=== PATIENT | female | born 1970 | race Caucasian/White ===

== ENCOUNTER 2020-06-07 06:24 | Observation (INO) ==
--- NOTE | 2020-06-07 06:45 | ERNOTE ---
<Erik Knox - Last Filed: 06/07/20 07:24> Medical Problem HPI - General Time Seen by Provider: 06/07/20 06:37 Source: patient Exam Limitations: no limitations - Immun/Allergies/Home Medications Immunizations: IMMUNIZATION HX Immunizations Up to Date Yes History of Influenza Vaccine Yes Hx Pneumococcal Vaccination No Allergies/Adverse Reactions: Allergies [facility] Allergy (Unknown, Verified 06/07/20 06:30) Cognitive changes Home Medications: HOME MEDICATIONS Atorvastatin Calcium 40 mg PO DAILY 06/10/19 [Last Taken Unknown] valACYclovir HCL [Valacyclovir] 500 mg PO DAILY 07/12/19 [Last Taken Unknown] diclofenac sodium 1 % topical gel 4 g TP QID PRN #100 g 07/17/19 [Last Taken Unknown] rivaroxaban 20 mg tablet 20 mg PO QPM 07/17/19 [Last Taken Unknown] pediatric multivitamin no.76 1 tab PO DAILY 01/19/20 [Last Taken Unknown] levothyroxine 25 mcg tablet 25 mcg PO DAILY #90 tab 01/26/20 [Last Taken Unknown] colestipol 1 gram tablet 1 g PO BID 03/29/20 [Last Taken Unknown] fidaxomicin 200 mg tablet 200 mg PO BID tab 03/29/20 [Last Taken Unknown] promethazine 25 mg tablet 25 mg PO TID 03/29/20 [Last Taken Unknown] ondansetron 4 mg disintegrating tablet 4 mg PO Q6H PRN 04/08/20 [Last Taken Unknown] desvenlafaxine succinate 100 mg tablet,extended release 24 hr 100 mg PO DAILY #90 tab 04/23/20 [Last Taken Unknown] desvenlafaxine succinate 50 mg tablet,extended release 24 hr 50 mg PO DAILY #90 tab 04/23/20 [Last Taken Unknown] lactase 3,000 unit tablet 9,000 unit PO AC PRN tab 04/24/20 [Last Taken Unknown] loperamide 2 mg capsule 4 mg PO Q6H PRN cap 04/24/20 [Last Taken Unknown] ropinirole 0.5 mg tablet 0.5 mg PO TID #270 tab 04/24/20 [Last Taken Unknown] sucralfate 1 gram tablet 1 g PO BID #60 tab 04/26/20 [Last Taken Unknown] pregabalin 100 mg capsule 100 mg PO BID #180 cap 05/06/20 [Last Taken Unknown] dicyclomine 10 mg capsule 20 mg PO QID #1 cap 05/10/20 [Last Taken Unknown] tizanidine 2 mg tablet See Rx Instructions PO .COMPLEX #120 tab 06/04/20 [Last Taken Unknown] clonazepam 1 mg tablet 1 mg PO TID PRN #90 tab 06/05/20 [Last Taken Unknown] lamotrigine 150 mg tablet 150 mg PO HS #15 tab 06/05/20 [Last Taken Unknown] lamotrigine 150 mg tablet 150 mg PO HS #90 tab 06/05/20 [Last Taken Unknown] trazodone 100 mg tablet 100 mg PO HS PRN #180 tab 06/05/20 [Last Taken Unknown] trazodone 100 mg tablet 200 mg PO HS #30 tab 06/05/20 [Last Taken Unknown] Potassium Chloride [K-Dur] 20 meq PO DAILY #4 tab 06/07/20 [Last Taken Unknown] - History of Present History Narrative: Patient states she normally does not feel well due to many comorbidities. She states that she did a lot of activity yesterday throughout the night she had crampy muscles diarrhea and could not sleep. Timing: getting worse Severity: mild, moderate Review of Systems - Review of Systems Constitutional: Present: See HPI, fatigue, malaise. Absent: recent illness EYE: Absent: vision changes ENT: Absent: nose congestion Respiratory: Absent: shortness of breath Cardiology: Absent: chest pain Gastrointestinal/Abdominal: Present: See HPI, nausea, diarrhea Genitourinary: Absent: dysuria Musculoskeletal: Present: back pain, muscle pain Skin: Absent: rash Neurological: Present: dizziness/light-headedness - off balance Endocrine: Absent: excessive sweating Medical History (Last Reviewed 06/07/20 @ 06:44 by Erik Knox DO) Insomnia due to mental disorder (Chronic) Bipolar affective disorder, current episode depressed (Chronic) Major depression (Chronic) Borderline personality disorder (Chronic) [place] disease C. difficile diarrhea Onset Date: 01/2020 Influenza vaccine not given Onset Date: ~12/29/19 Patient has already received for the season. JANELLE Reddy Migraine Pacemaker Onset Date: ~2014 TIA (transient ischemic attack) Allergic rhinitis Anxiety Arrhythmia Borderline personality disorder Cardiomyopathy Depression Fibromyalgia Hypertension Hypothyroidism Insomnia Leg pain Major depression Mixed hyperlipidemia Seasonal allergies Bipolar affective disorder, current episode depressed (Resolved) CVA (cerebral vascular accident) Cerebral artery occlusion Intestinal anastomotic leak Surgical History: Surgical History (Last Reviewed 06/07/20 @ 06:44 by Erik Knox DO) delivery delivered History of cholecystectomy History of colonoscopy Onset Date: 04/11/20 [facility] History of endoscopy Onset Date: 03/22/20 History of gastric bypass History of hysterectomy History of tonsillectomy Hx of tubal ligation Family History: Family History (Last Reviewed 06/07/20 @ 06:44 by Erik Knox DO) Sister Diabetes Social History: (Last Reviewed 06/07/20 @ 06:44 by Erik Knox DO) Social History: adopted: No foster care: No prison: No Marital status: number of children: 2 current occupational status: unemployed Highest level of school completed/degree received: Bachelor's degree Service: No Tobacco: Smoking Status: Never smoker Alcohol: alcohol intake: former Substance Use: substance use type: does not use Dietary Habits: caffeine: Yes Physical Exam - Physical Exam General Appearance: Present: wd/wn, alert, mild distress Head Exam: Present: normal inspection, no evidence of injury Neck: Present: normal inspection, nontender Respiratory: Present: no respiratory distress, normal breath sounds, lungs clear Cardiovascular/Chest: Present: regular rate, rhythm, no murmur Gastrointestinal/Abdominal: Present: normal bowel sounds, tenderness - upper abdomen Back Exam: Present: normal inspection, normal range of motion Extremity Exam: Present: normal inspection, normal range of motion, no edema Neurological Exam: Present: alert, oriented, no motor/sensory deficits Skin Exam: Present: normal color, warm/dry Lymphatic Exam: Present: no adenopathy Progress - Results and Orders Patient's Lab Results:: I have reviewed the patient's lab results. - Vital Signs Patient's Vital Signs:: I have reviewed the patient's vital signs. - Transfer of Care Physician Sign Out: Erik Knox Receiving Physician: Luis Angel Price Pending Results: Labs Expected Disposition: Discharge Departure Clinical Impression: Dehydration, Cramps, muscle, general, Hypokalemia - Departure Disposition: Home self-care Condition: Stable Instructions: Hypokalemia Additional Instructions: Rest. Fluids. Follow-up Wednesday at 10:[address] Sawant in the office. Oral potassium as directed. Return here for fever, vomiting, increased pain or if your condition worsens or changes in any way. Referrals: Mago Sawant MD [Primary Care Provider] - Prescriptions: Potassium Chloride [K-Dur] 20 meq PO DAILY #4 tab Transmission Status: Pending to [id number] <Luis Angel Price - Last Filed: 06/07/20 08:42> Medical Problem HPI - Immun/Allergies/Home Medications Immunizations: IMMUNIZATION HX Immunizations Up to Date Yes History of Influenza Vaccine Yes Hx Pneumococcal Vaccination No Medical History (Last Reviewed 06/07/20 @ 06:44 by Erik Knox DO) Insomnia due to mental disorder (Chronic) Bipolar affective disorder, current episode depressed (Chronic) Major depression (Chronic) Borderline personality disorder (Chronic) [place] disease C. difficile diarrhea Onset Date: 01/2020 Influenza vaccine not given Onset Date: ~12/29/19 Patient has already received for the season. JANELLE Reddy Migraine Pacemaker Onset Date: ~2014 TIA (transient ischemic attack) Allergic rhinitis Anxiety Arrhythmia Borderline personality disorder Cardiomyopathy Depression Fibromyalgia Hypertension Hypothyroidism Insomnia Leg pain Major depression Mixed hyperlipidemia Seasonal allergies Bipolar affective disorder, current episode depressed (Resolved) CVA (cerebral vascular accident) Cerebral artery occlusion Intestinal anastomotic leak Surgical History: Surgical History (Last Reviewed 06/07/20 @ 06:44 by Erik Knox DO) delivery delivered History of cholecystectomy History of colonoscopy Onset Date: 04/11/20 [facility] History of endoscopy Onset Date: 03/22/20 History of gastric bypass History of hysterectomy History of tonsillectomy Hx of tubal ligation Family History: Family History (Last Reviewed 06/07/20 @ 06:44 by Erik Knox DO) Sister Diabetes Social History: (Last Reviewed 06/07/20 @ 06:44 by Erik Knox DO) Social History: adopted: No foster care: No prison: No Marital status: number of children: 2 current occupational status: unemployed Highest level of school completed/degree received: Bachelor's degree Service: No Tobacco: Smoking Status: Never smoker Alcohol: alcohol intake: former Substance Use: substance use type: does not use Dietary Habits: caffeine: Yes Progress - Results and Orders Patient's Lab Results:: I have reviewed the patient's lab results. - Vital Signs Patient's Vital Signs:: I have reviewed the patient's vital signs. Vital Signs: Vital Signs 06/07/20 06:25 06/07/20 07:09 06/07/20 07:44 Temperature 36.6 C Pulse Rate 110 H 78 92 Respiratory Rate 16 14 16 Blood Pressure 130/81 117/75 116/92 H O2 Sat by Pulse Oximetry 99 98 98 - X-Ray X-Ray #1 X-Ray: abdomen Interpretation: Interp. by me X-ray Comments: I personally reviewed x-ray images as well as official radiology report. - Progress/Reassessment Progress Note-Subjective: 06/07/20 08:35 Patient checked out to me at am shift change. Labs reviewed. I gave PO and IV potassium and IV Solu-cortef. I spoke with the patient. I called Dr Sawant about admitting the patient observation but Dr Sawant knows her well and would like outpatient management with oral potassium and she will see her Wednesday in the office. I related this to the patient and she is agreeable. Please see Dr Knox's note for full H&P. Vitals stable.
[2020-06-07] MEDS ORDERED: ONDANSETRON HCL/PF 2 MG/ML VIAL IV ONE (07:10)
[2020-06-07 07:22] LABS: Hematocrit 42.9 % (37.0-47.0); Hemoglobin 13.3 gm/dL (12.5-16.0); Mean Cell Volume 91.3 fl (78-100); Mean Corpuscular Hemoglobin 28.3 pg (27-31); Neutrophil # 7.3 K/mm3 (1.3-6.0); Neutrophil % 77.7 % (42-75.0); Platelet Count 194 K/mm3 (150-450); Red Cell Distribution Width 13.9 % (11.5-14.0); White Blood Count 9.4 K/mm3 (4.0-10.5)
[2020-06-07 07:26] LABS: Urine Bilirubin Negative (NEGATIVE); Urine Blood Negative /ul (NEGATIVE); Urine Ketone Negative (NEGATIVE); Urine Nitrite Negative (NEGATIVE); Urine Protein Negative (NEGATIVE); Urine Urobilinogen Normal (NORMAL)
[2020-06-07] MEDS ORDERED: NORMAL SALINE 1,000 ML IV ONE (07:26)
[2020-06-07 07:36] LABS: Anion Gap 15.8 mmol/L (6.8-13.8); BUN/Creatinine Ratio 8.8 (9.0-21.6); Bilirubin, Total 0.2 mg/dL (0.0-1.1); Ca. Corrected For Albumin 8.4 mg/dL (8.4-10.2); Calcium * 8.7 mg/dL (7.9-10.9); Carbon Dioxide 24.8 mmol/L (24-32.6); Potassium 2.6 mmol/L (3.4-4.6); Total Protein 6.9 gm/dL (6.2-8.2)
[2020-06-07] MEDS ORDERED: HYDROCORTISONE SOD SUCCINATE 50 MG/ML VIAL IV ONE (07:38)
[2020-06-07 07:43] LABS: Urine Appearance Clear (CLEAR); Urine Bacteria None Seen; Urine Color Yellow; Urine RBC None Seen /hpf (0-5); Urine WBC None Seen /hpf (0-5)
[2020-06-07] MEDS ORDERED: POTASSIUM CHLORIDE 20 MEQ TABLET.SA PO ONE (07:54)
[2020-06-07] MEDS: POTASSIUM CHLORIDE IN WATER 100 ML IV SCH ×4 (08:35→13:31)
--- NOTE | 2020-06-07 10:31 | HP ---
Chief Complaint - Chief Complaint Date of Service: 06/07/20 Time of Service: 09:28 Chief Complaint: Muscle pain and diarrhea History of Present Illness: 49-year-old female with a past medical history of cardiomyopathy status post pacemaker, seizure, CVA, depression, fibromyalgia, hypertension, hypothyroidism, insomnia, major depression, hyperlipidemia, anxiety, bipolar affective disorder, borderline personality disorder presents from home with complaints of diarrhea and muscle pain. She has been having chronic diarrhea for months and has been following with gastroenterology at the [facility]. She was recently treated for recurrent C. difficile. She states the diarrhea has now completely resolved. She is able to eat now but has diarrhea after meals up to 3 episodes each time. She is tolerating oral hydration. In the ER she was found to have potassium of 2.6, sodium of 143. Abdominal x-ray showed mild nonspecific, nonobstructive ileus. She received IV fluids and potassium chloride 40 mEq orally and 10 mEq IV. ER physician wanted to send her home and have her follow- up with me in the office next week with repeat BMP. However, she declined to be sent home today and would like to remain for observation. She is being admitted for diarrhea with hypokalemia. Medical History (Last Reviewed 06/07/20 @ 06:44 by Erik Knox DO) Insomnia due to mental disorder (Chronic) Bipolar affective disorder, current episode depressed (Chronic) Major depression (Chronic) Borderline personality disorder (Chronic) [place] disease C. difficile diarrhea Onset Date: 01/2020 Influenza vaccine not given Onset Date: ~12/29/19 Patient has already received for the season. JANELLE Reddy Migraine Pacemaker Onset Date: ~2014 TIA (transient ischemic attack) Allergic rhinitis Anxiety Arrhythmia Borderline personality disorder Cardiomyopathy Depression Fibromyalgia Hypertension Hypothyroidism Insomnia Leg pain Major depression Mixed hyperlipidemia Seasonal allergies Bipolar affective disorder, current episode depressed (Resolved) CVA (cerebral vascular accident) Cerebral artery occlusion Intestinal anastomotic leak Surgical History: Surgical History (Last Reviewed 06/07/20 @ 06:44 by Erik Knox DO) delivery delivered History of cholecystectomy History of colonoscopy Onset Date: 04/11/20 [facility] History of endoscopy Onset Date: 03/22/20 History of gastric bypass History of hysterectomy History of tonsillectomy Hx of tubal ligation Family History: Family History (Last Reviewed 06/07/20 @ 06:44 by Erik Knox DO) Sister Diabetes Social History: (Last Reviewed 06/07/20 @ 06:44 by Erik Knox DO) Social History: adopted: No foster care: No jail: No Marital status: number of children: 2 current occupational status: unemployed Highest level of school completed/degree received: Bachelor's degree Service: No Tobacco: Smoking Status: Never smoker Alcohol: alcohol intake: former Substance Use: substance use type: does not use Dietary Habits: caffeine: Yes Review Of Systems (GEN) - Review of Systems Generalized/Overall Review: Absent: Chills, Fever Respiratory: Absent: Shortness of Breath Cardiac: Absent: Chest Pain Abdominal: Present: Nausea, Vomiting, Diarrhea. Absent: Abdominal Pain Musculoskeletal: Present: Muscle Pain Misc: All systems neg except as marked Immunizations: IMMUNIZATION HX Immunizations Up to Date Yes History of Influenza Vaccine Yes Hx Pneumococcal Vaccination No Allergies/Adverse Reactions: Allergies Allergy/AdvReac Type Severity Reaction Status Date / Time aripiprazole [From [facility]] Allergy Unknown Cognitive Verified 06/07/20 06:30 changes Home Medications: HOME MEDICATIONS Atorvastatin Calcium 40 mg PO DAILY 06/10/19 [Last Taken Unknown] valACYclovir HCL [Valacyclovir] 500 mg PO DAILY 07/12/19 [Last Taken Unknown] diclofenac sodium 1 % topical gel 4 g TP QID PRN #100 g 07/17/19 [Last Taken Unknown] rivaroxaban 20 mg tablet 20 mg PO QPM 07/17/19 [Last Taken Unknown] pediatric multivitamin no.76 1 tab PO DAILY 01/19/20 [Last Taken Unknown] levothyroxine 25 mcg tablet 25 mcg PO DAILY #90 tab 01/26/20 [Last Taken Unknown] colestipol 1 gram tablet 1 g PO BID 03/29/20 [Last Taken Unknown] fidaxomicin 200 mg tablet 200 mg PO BID tab 03/29/20 [Last Taken Unknown] promethazine 25 mg tablet 25 mg PO TID 03/29/20 [Last Taken Unknown] ondansetron 4 mg disintegrating tablet 4 mg PO Q6H PRN 04/08/20 [Last Taken Unknown] desvenlafaxine succinate 100 mg tablet,extended release 24 hr 100 mg PO DAILY #90 tab 04/23/20 [Last Taken Unknown] desvenlafaxine succinate 50 mg tablet,extended release 24 hr 50 mg PO DAILY #90 tab 04/23/20 [Last Taken Unknown] lactase 3,000 unit tablet 9,000 unit PO AC PRN tab 04/24/20 [Last Taken Unknown] loperamide 2 mg capsule 4 mg PO Q6H PRN cap 04/24/20 [Last Taken Unknown] ropinirole 0.5 mg tablet 0.5 mg PO TID #270 tab 04/24/20 [Last Taken Unknown] sucralfate 1 gram tablet 1 g PO BID #60 tab 04/26/20 [Last Taken Unknown] pregabalin 100 mg capsule 100 mg PO BID #180 cap 05/06/20 [Last Taken Unknown] dicyclomine 10 mg capsule 20 mg PO QID #1 cap 05/10/20 [Last Taken Unknown] tizanidine 2 mg tablet See Rx Instructions PO .COMPLEX #120 tab 06/04/20 [Last Taken Unknown] clonazepam 1 mg tablet 1 mg PO TID PRN #90 tab 06/05/20 [Last Taken Unknown] lamotrigine 150 mg tablet 150 mg PO HS #15 tab 06/05/20 [Last Taken Unknown] lamotrigine 150 mg tablet 150 mg PO HS #90 tab 06/05/20 [Last Taken Unknown] trazodone 100 mg tablet 100 mg PO HS PRN #180 tab 06/05/20 [Last Taken Unknown] trazodone 100 mg tablet 200 mg PO HS #30 tab 06/05/20 [Last Taken Unknown] Potassium Chloride [K-Dur] 20 meq PO DAILY #4 tab 06/07/20 [Last Taken Unknown] Exam - Exam Vital Signs: Vital Signs - Last Taken Temp 36.6 C 06/07/20 06:25 Pulse 93 06/07/20 09:55 Resp 16 06/07/20 09:55 BP 133/85 06/07/20 09:55 Pulse Ox 95 06/07/20 09:55 Constitutional: Present: Alert, Cooperative, Well developed, Well nourished, No distress, Middle aged Eye Exam: bilateral eye: normal inspection, EOMI Neck: Present: non-tender, supple. Absent: lymphadenopathy (R), lymphadenopathy (L) Back Exam: Present: normal inspection, no CVA tenderness, no vertebral tenderness Respiratory: Present: lungs clear, no respiratory distress, no accessory muscle use, No wheezing. Absent: crackles, rhonchi Cardiovascular/Chest: Present: normal peripheral pulses, regular rate, rhythm, no edema, no murmur Peripheral Pulses: dorsalis-pedis (R): 2+, dorsalis-pedis (L): 2+ Abdomen: Present: Normal bowel sounds, soft, nontender Extremity: Present: no pedal edema Skin Exam: Present: normal color, warm/dry Neurologic: Present: alert, normal mood/affect Appearance: Present: appropriate appearance, appropriate insight Eye contact: Present: cooperative, good eye contact Thoughts: Present: normal thought pattern, normal mood /affect Diagnostic Studies: Abnormal Lab Results 06/07/20 06/07/20 Range/Units 07:11 07:11 MCHC 31.0 L (32-36) g/dl Neutrophils % 77.7 H (42-75.0) % Lymphocytes % 13.5 L (20-51) % Neutrophils # 7.3 H (1.3-6.0) K/mm3 Lymphocytes # 1.26 L (1.5-3.5) k/mm3 Sodium 143 H (132-142) mmol/L Plasma Sodium 143 H (130-142) mmol/L Potassium 2.6 L (3.4-4.6) mmol/L Anion Gap 15.8 H (6.8-13.8) mmol/L Est GFR (Non-Af Amer) 48 L (60-130) mL/min BUN/Creatinine Ratio 8.8 L (9.0-21.6) Laboratory Results WBC 9.4 K/mm3 (4.0-10.5) 06/07/20 07:11 RBC 4.70 M/mm3 (4.2-5.4) 06/07/20 07:11 Hgb 13.3 gm/dL (12.5-16.0) 06/07/20 07:11 Hct 42.9 % (37.0-47.0) 06/07/20 07:11 MCV 91.3 fl (78-100) 06/07/20 07:11 MCH 28.3 pg (27-31) 06/07/20 07:11 MCHC 31.0 g/dl (32-36) L 06/07/20 07:11 RDW 13.9 % (11.5-14.0) 06/07/20 07:11 Plt Count 194 K/mm3 (150-450) 06/07/20 07:11 MPV 11.0 fl (8-12.5) 06/07/20 07:11 Immature Gran % (Auto) 0.30 % (0.001-0.429) 06/07/20 07:11 Immature Gran # (Auto) 0.03 K/mm3 (0.000-0.0310) 06/07/20 07:11 Neutrophils % 77.7 % (42-75.0) H 06/07/20 07:11 Lymphocytes % 13.5 % (20-51) L 06/07/20 07:11 Monocytes % 6.9 % (0.0-9) 06/07/20 07:11 Eosinophils % 1.1 % (0.0-3.0) 06/07/20 07:11 Basophils % 0.5 % (0.0-1.0) 06/07/20 07:11 Nucleated RBC % 0.0 k/mm3 (0-1) 06/07/20 07:11 Neutrophils # 7.3 K/mm3 (1.3-6.0) H 06/07/20 07:11 Lymphocytes # 1.26 k/mm3 (1.5-3.5) L 06/07/20 07:11 Monocytes # 0.7 k/mm3 (0.0-1.0) 06/07/20 07:11 Eosinophils # 0.1 k/mm3 (0.0-0.7) 06/07/20 07:11 Absolute Basophils 0.1 k/mm3 (0.0-0.1) 06/07/20 07:11 Sodium 143 mmol/L (132-142) H 06/07/20 07:11 Plasma Sodium 143 mmol/L (130-142) H 06/07/20 07:11 Potassium 2.6 mmol/L (3.4-4.6) L 06/07/20 07:11 Chloride 105 mmol/L (97-106) 06/07/20 07:11 Carbon Dioxide 24.8 mmol/L (24-32.6) 06/07/20 07:11 Anion Gap 15.8 mmol/L (6.8-13.8) H 06/07/20 07:11 BUN 11 mg/dL (3-23) 06/07/20 07:11 Creatinine 1.25 mg/dL (0.4-1.4) 06/07/20 07:11 Est GFR (Non-Af Amer) 48 mL/min (60-130) L 06/07/20 07:11 BUN/Creatinine Ratio 8.8 (9.0-21.6) L 06/07/20 07:11 Random Glucose 87 mg/dL (70-110) 06/07/20 07:11 Calcium 8.7 mg/dL (7.9-10.9) 06/07/20 07:11 Calcium Adj for Albumin 8.4 mg/dL (8.4-10.2) 06/07/20 07:11 Magnesium 2.2 mg/dL (1.2-2.8) 06/07/20 06:40 Total Bilirubin 0.2 mg/dL (0.0-1.1) 06/07/20 07:11 AST 22 U/L (0-48) 06/07/20 07:11 ALT 26 U/L (19-67) 06/07/20 07:11 Alkaline Phosphatase 115 U/L (50-170) 06/07/20 07:11 Creatine Kinase 121 U/L (0-259) 06/07/20 06:49 Total Protein 6.9 gm/dL (6.2-8.2) 06/07/20 07:11 Albumin 4.0 gm/dl (3.4-5.0) 06/07/20 07:11 Amylase 78 U/L (25-115) 06/07/20 07:11 Lipase 83 U/L (73-393) 06/07/20 07:11 Urine Color Yellow 06/07/20 06:45 Urine Appearance Clear (CLEAR) 06/07/20 06:45 Urine pH 7.0 pH (5.0-7.0) 06/07/20 06:45 Ur Specific [place] 1.010 SP.GR. (1.005-1.010) 06/07/20 06:45 Urine Protein Negative mg/dL (NEGATIVE) 06/07/20 06:45 Urine Glucose (UA) Negative mg/dL (NEGATIVE) 06/07/20 06:45 Urine Ketones Negative mg/dL (NEGATIVE) 06/07/20 06:45 Urine Blood Negative /ul (NEGATIVE) 06/07/20 06:45 Urine Nitrate Negative (NEGATIVE) 06/07/20 06:45 Urine Bilirubin Negative mg/dl (NEGATIVE) 06/07/20 06:45 Urine Urobilinogen Normal EU/dl (NORMAL) 06/07/20 06:45 Ur Leukocyte Esterase Negative /ul (NEGATIVE) 06/07/20 06:45 Urine RBC None seen /hpf (0-5) 06/07/20 06:45 Urine WBC None seen /hpf (0-5) 06/07/20 06:45 Ur Epithelial Cells 0-5 /hpf (0-5) 06/07/20 06:45 Urine Bacteria None seen (NONE) 06/07/20 06:45 Urine Culture Comments No culture indicated 06/07/20 06:45 Assessment/Plan - Narrative Narrative: 49-year-old female with a past medical history of cardiomyopathy status post pacemaker, seizure, CVA, depression, fibromyalgia, hypertension, hypothyroidism, insomnia, major depression, hyperlipidemia, anxiety, bipolar affective disorder, borderline personality disorder presents from home with complaints of diarrhea and muscle pain. She has been having chronic diarrhea for months and has been following with gastroenterology at the [facility]. She was recently treated for recurrent C. difficile. She states the diarrhea has now completely resolved. She is able to eat now but has diarrhea after meals up to 3 episodes each time. She is tolerating oral hydration. In the ER she was found to have potassium of 2.6, sodium of 143. Abdominal x-ray showed mild nonspecific, nonobstructive ileus. She received IV fluids and potassium chloride 40 mEq orally and 10 mEq IV. ER physician wanted to send her home and have her follow- up with me in the office next week with repeat BMP. However, she declined to be sent home today and would like to remain for observation. She is being admitted for diarrhea with hypokalemia. Plan #1 replete potassium as needed #2 repeat BMP in the morning #3 resume home medications for comorbidities - Assessment/Plan (1) Hypokalemia Problem: Acute (2) Nausea and vomiting Problem: Acute (3) Ileus Problem: Acute (4) Hypothyroidism Problem: Chronic Qualifiers: (5) Anxiety Problem: Chronic (6) Cramps, muscle, general Problem: Acute (7) Insomnia due to mental disorder Problem: Chronic (8) Chronic diarrhea Problem: Acute (9) Bipolar affective disorder, current episode depressed Problem: Chronic Qualifiers: (10) Major depression Problem: Chronic Qualifiers:
[2020-06-07] MEDS ORDERED: DICLOFENAC SODIUM 100 APPL TUBE TP PRN (13:06)
[2020-06-07] MEDS ORDERED: clonazePAM 1 MG TABLET PO PRN (13:06)
[2020-06-07] MEDS ORDERED: LOPERAMIDE HCL 2 MG CAPSULE PO PRN (13:06)
[2020-06-07] MEDS ORDERED: LACTASE 3000 UNIT PO PRN (13:06)
[2020-06-07] MEDS ORDERED: ACETAMINOPHEN 500 MG TABLET PO PRN (13:06)
[2020-06-07] MEDS ORDERED: ONDANSETRON 4 MG TAB.RAPDIS PO PRN (13:06)
[2020-06-07] MEDS: COLESTIPOL HCL 1 G TABLET PO SCH ×2 (14:14→20:44)
[2020-06-07] MEDS: tiZANidine HCL 4 MG TABLET PO SCH ×2 (14:14→20:46)
[2020-06-07] MEDS: LEVOTHYROXINE SODIUM 25 MCG TABLET PO SCH (14:15)
[2020-06-07] MEDS: valACYclovir HCL 500 MG TABLET PO SCH (14:15)
[2020-06-07] MEDS: PREGABALIN 50 MG CAPSULE PO SCH ×2 (14:19→20:53)
[2020-06-07] MEDS: DESVENLAFAXINE SUCCINATE 100 MG PO SCH (16:35)
[2020-06-07] MEDS: PROMETHAZINE HCL 25 MG TABLET PO SCH (16:36)
[2020-06-07] MEDS: rOPINIRole HCL 0.5 MG TABLET PO SCH (16:36)
[2020-06-07] MEDS: DICYCLOMINE HCL 10 MG CAPSULE PO SCH (16:36)
[2020-06-07] MEDS: FIDAXOMICIN 200 MG TABLET PO SCH ×2 (16:37→20:57)
[2020-06-07] MEDS ORDERED: RIVAROXABAN 20 MG TABLET PO SCH (17:00)
[2020-06-07] MEDS ORDERED: ROSUVASTATIN CALCIUM 20 MG TABLET PO SCH (17:00)
[2020-06-07] MEDS ORDERED: QUETIAPINE FUMARATE 300 MG PO SCH (17:00)
[2020-06-07] MEDS ORDERED: lamoTRIgine 100 MG TABLET PO SCH (21:00)
[2020-06-07] MEDS ORDERED: traZODone HCL 50 MG TABLET PO SCH (21:00)
[2020-06-08 05:47] LABS: Albumin * 2.9 gm/dl (3.4-5.0); Anion Gap 10.7 mmol/L (6.8-13.8); BUN/Creatinine Ratio 6.5 (9.0-21.6); Bilirubin, Total 0.3 mg/dL (0.0-1.1); Ca. Corrected For Albumin 8.3 mg/dL (8.4-10.2); Calcium * 7.7 mg/dL (7.9-10.9); Carbon Dioxide 24.3 mmol/L (24-32.6); Total Protein 5.1 gm/dL (6.2-8.2)
[2020-06-08] MEDS: LEVOTHYROXINE SODIUM 25 MCG TABLET PO SCH (06:40)
[2020-06-08] MEDS: PREGABALIN 50 MG CAPSULE PO SCH (08:55)
[2020-06-08] MEDS: rOPINIRole HCL 0.5 MG TABLET PO SCH ×2 (08:56→12:44)
[2020-06-08] MEDS: DICYCLOMINE HCL 10 MG CAPSULE PO SCH ×2 (08:56→12:44)
[2020-06-08] MEDS: COLESTIPOL HCL 1 G TABLET PO SCH (08:56)
[2020-06-08] MEDS: PROMETHAZINE HCL 25 MG TABLET PO SCH ×2 (08:57→12:44)
[2020-06-08] MEDS: valACYclovir HCL 500 MG TABLET PO SCH (08:57)
[2020-06-08] MEDS: DESVENLAFAXINE SUCCINATE 100 MG PO SCH (08:57)
[2020-06-08] MEDS: tiZANidine HCL 4 MG TABLET PO SCH (08:57)
[2020-06-08] MEDS: FIDAXOMICIN 200 MG TABLET PO SCH (08:58)
[2020-06-08] MEDS ORDERED: POTASSIUM CHLORIDE 20 MEQ TABLET.SA PO SCH (09:00)
[2020-06-08 11:51] LABS: Anion Gap 11.2 mmol/L (6.8-13.8); BUN/Creatinine Ratio 5.9 (9.0-21.6); Calcium * 7.9 mg/dL (7.9-10.9); Estimated Creat Clear 47.3; Potassium 3.2 mmol/L (3.4-4.6)
--- NOTE | 2020-06-08 12:17 | DS ---
(1) Hypokalemia Problem: Acute (2) Nausea and vomiting Problem: Resolved (3) Bipolar affective disorder, current episode depressed Problem: Chronic Qualifiers: (4) Major depression Problem: Chronic Qualifiers: (5) Borderline personality disorder Problem: Chronic Date of Discharge:: 06/08/20 Hospital Course: Patient with PMHx of borderline personality disorder, depression, bipolar disorder, cardiomyopathy, previous c diff infection presented to the ED after having increased muscle cramps, vomiting, and diarrhea. Potassium was 2.6, and she did not feel well enough to go home. She was given 40 mEq IV KCL and potassium improved to 3.0 the following morning. On my exam, she complained of continued headache, vomiting, and diarrhea, however nursing staff reports formed stool, no vomiting, and she'd denied pain earlier this morning. She felt like she would vomit the potassium tablet. She was given an additional dose of 40 mEq KDur, and her potassium increased to 3.2. We will be discharged home with 40 mEq KCl bid, to follow up with her PCP this week. Procedures Performed: none Results and Findings: Lab Pending Results 06/07/20 06:40: Magnesium 2.2 06/07/20 06:45: Urine Color Yellow, Urine Appearance Clear, Urine pH 7.0, Ur Specific [place] 1.010, Urine Protein Negative, Urine Glucose (UA) Negative, Urine Ketones Negative, Urine Blood Negative, Urine Nitrate Negative, Urine Bilirubin Negative, Urine Urobilinogen Normal, Ur Leukocyte Esterase Negative, Urine RBC None seen, Urine WBC None seen, Ur Epithelial Cells 0-5, Urine Bacteria None seen, Urine Culture Comments No culture indicated 06/07/20 06:49: Creatine Kinase 121 06/07/20 07:11: WBC 9.4, RBC 4.70, Hgb 13.3, Hct 42.9, MCV 91.3, MCH 28.3, MCHC 31.0 L, RDW 13.9, Plt Count 194, MPV 11.0, Immature Gran % (Auto) 0.30, Immature Gran # (Auto) 0.03, Neutrophils % 77.7 H, Lymphocytes % 13.5 L, Monocytes % 6.9, Eosinophils % 1.1, Basophils % 0.5, Nucleated RBC % 0.0, Neutrophils # 7.3 H, Lymphocytes # 1.26 L, Monocytes # 0.7, Eosinophils # 0.1, Absolute Basophils 0.1 06/07/20 07:11: Sodium 143 H, Plasma Sodium 143 H, Potassium 2.6 L, Chloride 105, Carbon Dioxide 24.8, Anion Gap 15.8 H, BUN 11, Creatinine 1.25, Est GFR (Non-Af Amer) 48 L, BUN/Creatinine Ratio 8.8 L, Random Glucose 87, Calcium 8.7, Calcium Adj for Albumin 8.4, Total Bilirubin 0.2, AST 22, ALT 26, Alkaline Phosphatase 115, Total Protein 6.9, Albumin 4.0, Amylase 78, Lipase 83 06/07/20 09:55: SARS-CoV-2 (PCR) Not detected 06/08/20 05:30: Sodium 144 H, Plasma Sodium 144 H, Potassium 3.0 L, Chloride 112 H, Carbon Dioxide 24.3, Anion Gap 10.7, BUN 7, Creatinine 1.07, Est GFR (Non-Af Amer) 58 L D, BUN/Creatinine Ratio 6.5 L, Random Glucose 89, Calcium 7.7 L, Calcium Adj for Albumin 8.3 L, Total Bilirubin 0.3, AST 14, ALT 19, Alkaline Phosphatase 88, Total Protein 5.1 L, Albumin 2.9 L 06/08/20 11:40: Sodium 144 H, Plasma Sodium 144 H, Potassium 3.2 L, Chloride 111 H, Carbon Dioxide 25.0, Anion Gap 11.2, BUN 7, Creatinine 1.19, Est GFR (Non-Af Amer) 51 L, BUN/Creatinine Ratio 5.9 L, Random Glucose 69 L, Calcium 7.9 Discharge Location: Home Disposition: Home self-care Condition: Good Discharge Activity: Activity as tolerated Discharge Diet: General/regular food Referrals: Mago Sawant MD [Primary Care Provider] - One Week Additional Patient Instructions (free text): [facility] will call you on Wednesday with Dr. Sawant follow up appointment. Prescriptions (Any new or edited meds): Potassium Chloride [K-Dur] 40 meq PO BIDWM #28 tablet.sa Transmission Status: Pending to [facility] #[id number] Complete Home Medications List: Complete Home Medication List: Atorvastatin Calcium 40 mg PO QPM 06/10/19 valACYclovir HCL [Valacyclovir] 500 mg PO DAILY 05/13/20 rivaroxaban 20 mg tablet 20 mg PO QPM 07/17/19 pediatric multivitamin no.76 1 tab PO DAILY 01/19/20 levothyroxine 25 mcg tablet 25 mcg PO DAILY #90 tab 01/26/20 colestipol 1 gram tablet 1 g PO BID 03/29/20 fidaxomicin 200 mg tablet 200 mg PO BID tab 03/29/20 promethazine 25 mg tablet 25 mg PO TID 03/29/20 ondansetron 4 mg disintegrating tablet 4 mg PO Q6H PRN 04/08/20 desvenlafaxine succinate 100 mg tablet,extended release 24 hr 100 mg PO DAILY #90 tab 04/23/20 lactase 3,000 unit tablet 9,000 unit PO AC PRN tab 04/24/20 loperamide 2 mg capsule 4 mg PO Q6H PRN cap 04/24/20 ropinirole 0.5 mg tablet 0.5 mg PO TID #270 tab 04/24/20 sucralfate 1 gram tablet 1 g PO BID #60 tab 04/26/20 pregabalin 100 mg capsule 100 mg PO BID #180 cap 05/06/20 clonazepam 1 mg tablet 1 mg PO TID PRN #90 tab 06/05/20 lamotrigine 150 mg tablet 150 mg PO HS #90 tab 06/05/20 Acetaminophen [Tylenol] 500 mg PO Q6H PRN 06/07/20 Diclofenac Sodium 2 - 4 g TP QID PRN 06/07/20 Dicyclomine HCl 10 mg PO TID 06/07/20 Galcanezumab-Gnlm [Emgality Syringe] 120 mg SQ .MONTHLY 06/07/20 Potassium Chloride [K-Dur] 20 meq PO DAILY #4 tab 06/07/20 QUEtiapine FUMARATE [Seroquel Xr] 300 mg PO QPM 06/07/20 tiZANidine HCL [Tizanidine HCl] 2 mg PO BID 06/07/20 traZODone HCL [Trazodone HCl] 100 mg PO HS 06/07/20 Potassium Chloride [K-Dur] 40 meq PO BIDWM #28 tablet.sa 06/08/20 Forms: Patient Portal Registration
[2020-06-08 14:02] VITALS: BP 121/74
== END 2020-06-08 13:50 | disposition home or self-care (01) ==
LOC: MS 06:24 → ER 06:24 → MS 11:16
PROVIDERS: ADMIT Internal Medicine; ATTEND Internal Medicine